=== PATIENT | female | born 1990 | race Caucasian/White ===

== ENCOUNTER → 2018-09-28 | Outpatient (CLI) | payer BC ==
[2018-09-28 16:30] LABS: EOS # 0.2 (0.04-0.40); EOS % 2.6 % (1.0-5.0); HEMATOCRIT 37.7 % (37.0-47.0); HEMOGLOBIN 12.4 g/dL (12.5-16.0); LYMPH# 3.1 (1.50-4.00); MEAN CELL VOLUME 93 fl (78-100); MEAN CORPUSCULAR HEMOGLOBIN 31 pg (27-31); MEAN CORPUSCULAR HGB CONC 33 g/dL (33-37); MEAN PLATELET VOLUME 9.4 fl (7.4-10.4); MONO # 0.5 (0.20-0.80); NEU # 3.9 (1.40-6.50); PLATELET COUNT 327 K/mm3 (130-400); RED BLOOD COUNT 4.07 M/mm3 (4.10-5.30); WHITE BLOOD COUNT 7.7 K/mm3 (4.8-10.8)
[2018-09-28 16:45] LABS: ALBUMIN 4.5 g/dL (3.5-5.0); CALCIUM 9.6 mg/dL (8.4-10.2); POTASSIUM 4.2 mmol/L (3.6-5.0); TOTAL BILIRUBIN 0.4 mg/dL (0.2-1.3); TOTAL PROTEIN 7.2 g/dL (6.3-8.2)
== END ==
LOC: LAB 16:08
PROVIDERS: Family Medicine
DX: Z00.00 Encounter for general adult medical examination without abnormal findings (principal)

== ENCOUNTER → 2018-11-01 | Outpatient (CLI) | payer BC | LOC: LAB 08:25 | DX: R50.9 Fever, unspecified (principal); R05 Cough ==

== ENCOUNTER → 2019-02-14 | Outpatient (CLI) | payer BC ==
[2019-02-14 15:11] LABS: ALBUMIN 4.1 g/dL (3.5-5.0); CALCIUM 9.3 mg/dL (8.4-10.2); POTASSIUM 3.8 mmol/L (3.5-5.1); TOTAL BILIRUBIN 0.4 mg/dL (0.2-1.2); TOTAL PROTEIN 6.9 g/dL (6.4-8.3)
== END ==
LOC: LAB 14:34
PROVIDERS: Family Medicine
DX: G62.9 Polyneuropathy, unspecified (principal)

== ENCOUNTER → 2019-08-10 | Outpatient (CLI) | payer BC ==
[2019-08-11 17:05] LABS: FOLLICLE STIMULATING HORMONE 5.8 mIU/mL (()); LUTENIZING HORMONE 6.3 mIU/mL (())
== END ==
LOC: LAB 16:54
PROVIDERS: Family Medicine
DX: G43.909 Migraine, unspecified, not intractable, without status migrainosus (principal); R41.0 Disorientation, unspecified; R29.818 Other symptoms and signs involving the nervous system; R47.01 Aphasia

== ENCOUNTER → 2019-08-14 | Outpatient (CLI) | payer BC | LOC: RAD 08:18 | DX: G43.909 Migraine, unspecified, not intractable, without status migrainosus (principal); R41.0 Disorientation, unspecified; R47.01 Aphasia; R29.818 Other symptoms and signs involving the nervous system ==

== ENCOUNTER → 2019-08-19 | Outpatient (CLI) | payer BC | LOC: LAB 16:50 | DX: G43.909 Migraine, unspecified, not intractable, without status migrainosus (principal); R47.01 Aphasia; R41.0 Disorientation, unspecified; R29.818 Other symptoms and signs involving the nervous system ==